=== PATIENT | female | born 1995 | race African-American/Black ===

== ENCOUNTER 2019-05-14 17:13 | Emergency (ER) | payer OTHER ==
[~2019-05-14] VITALS: Ht 154.9 cm; Wt 57.1 kg
[2019-05-14] MEDS ORDERED: NOHOMEMEDICATIONS (17:32)
[2019-05-14 17:33] LABS: URINE BILIRUBIN NEGATIVE (Negative); URINE BLOOD 1+ (Negative); URINE CLARITY CLEAR; URINE COLOR YELLOW; URINE GLUCOSE-RANDOM* NEGATIVE (Negative); URINE KETONES NEGATIVE (Negative); URINE LEUKOCYTES-REFLEX NEGATIVE (Negative); URINE NITRITE-REFLEX NEGATIVE (Negative); URINE PROTEIN (DIPSTICK) NEGATIVE (Negative); URINE UROBILINOGEN 0.2 E.U./dl (0.2-1.0)
[2019-05-14 17:48] LABS: BACTERIA-REFLEX None Seen /HPF (None Seen); CASTS None Seen /LPF (None Seen); CRYSTALS None Seen /LPF (None Seen); SQUAMOUS 0-3 Few /LPF (0-3); URINE RBC None Seen /HPF (0-2); URINE WBC-REFLEX None Seen /HPF (0-5)
[2019-05-14] MEDS ORDERED: TRAMADOL 50 MG50 MG PO (19:30)
[2019-05-14] MEDS ORDERED: LOESTRIN FE 1-1 EACH PO (19:30)
[2019-05-14 20:19] VITALS: BP 128/78
== END 2019-05-14 20:05 | disposition home or self-care (01) ==
LOC: ER 17:13 → EDSEX 17:13 → ER 20:05
PROVIDERS: Nurse Practitioner Family
DX: R10.2 Pelvic and perineal pain (principal); G89.29 Other chronic pain; N80.9 Endometriosis, unspecified